=== PATIENT | male | born 1950 | race Caucasian/White ===

== ENCOUNTER → 2018-04-01 | Outpatient (CLI) | payer MEDICARE ==
[~2018-04-01] MED LIST: ACCUPRIL5 MG PO; CELEBREX100 MG PO; GABAPENTIN400 MG PO; GADOBENATE DIMEGLUMINE 1 ML IV ONE; PRAVASTATIN SOD10 MG; SODIUM CHLORIDE 0.9% 50ML 50 ML ONE
[2018-04-01 14:59] LABS: BLOOD UREA NITROGEN 8 mg/dL (7-26); BUN/CREATININE RATIO 10 (6-25); CREATININE, SERUM 0.83 mg/dL (0.72-1.25); EST GLOMERULAR FILTRATION RATE > 60 ML/MIN (60-)
--- NOTE | 2018-04-01 15:49 | Diagnostic Imaging Report ---
PROCEDURE: Frontal and lateral views of the chest. COMPARISON: [facility] [place], DX, CHEST SINGLE (PORTABLE), 02/27/2017, 15:14. INDICATIONS: SHORTNESS OF BREATH FINDINGS: Lines/tubes: None. Lungs: The lungs are well inflated and clear. There is no evidence of pneumonia or pulmonary edema. Pleura: There is no pleural effusion or pneumothorax. Heart and mediastinum: The heart and the mediastinum are normal. Mild calcification of the aortic arch. Bones: No acute bony abnormality. Remote healed fracture of the posterolateral right ninth rib. Multilevel spondylosis of the mid to lower thoracic spine. Left humeral hemiarthroplasty. IMPRESSION: 1. No acute cardiopulmonary disease. Tiffany Ballesteros M.D. Dictated by: Tiffany Ballesteros M.D. on 04/01/2018 at 15:53 Electronically approved by: Tiffany Ballesteros M.D. on 04/01/2018 at 15:53
--- NOTE | 2018-04-01 20:28 | Diagnostic Imaging Report ---
Examination: MRI of the Brain without and with Contrast History: FOLLOW UP PITUITARY MASS Comparison studies: February 25, 2017 Technique: Multiplanar multisequence MR images of the brain with and without contrast including sella field of view sequences. Findings: Sella/Pituitary gland: Reidentified 1.4 x 1.7 x 1.7 cm expansile smooth ovoid enhancing sellar-suprasellar mass most consistent with a pituitary macroadenoma; unchanged from February 25, 2017. Pituitary stalk: Displaced the right of midline Optic chiasm: Well visualized and unremarkable. Cavernous sinuses: Normal in size and symmetric. Internal carotid arteries: Normal flow void appearance. Sphenoid sinuses: No T2 hyperintense mucosal inflammatory changes. There are no abnormalities in the visualized sections through the brain. IMPRESSION: 1. No new abnormality. No change from February 25, 2017 brain MRI. 2. Unchanged pituitary macroadenoma. The images and preliminary report of by Dr. Bazan were reviewed and signed by Dr. Farzana Moon, neuroradiology faculty, on 04/01/2018 at 2024 hours. Signed by: Dr. Farzana Moon M.D. on 04/01/2018 8:24 PM
== END | disposition home or self-care (01) ==
LOC: MRI 14:09
PROVIDERS: ATTEND Internal Medicine
DX: D35.2 Benign neoplasm of pituitary gland (principal)
CPT/HCPCS: 36415; 70553; 71046; 82565; 84520

== ENCOUNTER → 2019-04-09 | Outpatient (CLI) | payer MEDICARE ==
[~2019-04-09] MED LIST changes: -SODIUM CHLORIDE 0.9% 50ML 50 ML ONE
[2019-04-09 16:38] LABS: BLOOD UREA NITROGEN 11 mg/dL (7-26); BUN/CREATININE RATIO 12 (6-25); CREATININE, SERUM 0.93 mg/dL (0.72-1.25); EST GLOMERULAR FILTRATION RATE > 60 ML/MIN (60-)
--- NOTE | 2019-04-09 19:30 | Diagnostic Imaging Report ---
History: Follow-up pituitary mass Comparison studies: Pituitary MRI 04/01/2018 Technique: Pre-and post coronal and sagittal T1. Coronal T2. Axial DWI through the brain. Dynamic postcontrast coronal through the sella Intravenous contrast: 20 cc of MultiHance Findings: Sella and pituitary gland: The sella is expanded and largely occupied by a 1.7 x 1.3 x 1.7 cm (SI x AP x TV) ovoid mass in the left sella which extends to the inferior margin of the suprasellar cistern and is unchanged. Lesion is T2 hyperintense to presumably residual enhancing pituitary tissue in the right sella. Pituitary stalk: Normal in size, deviated to the right of midline, unchanged. Optic chiasm: Well visualized and unremarkable. Cavernous sinuses: Intrasellar mass abuts the medial lara of the cavernous sinus without definite evidence of cavernous sinus invasion. Internal carotid arteries: Normal flow void appearance. Paranasal sinuses: Mild nonspecific inflammatory mucosal thickening in the bilateral ethmoid air cells and left sphenoid sinus. There are no abnormalities in the visualized sections through the brain. IMPRESSION: Pituitary macroadenoma is unchanged from the prior pituitary MRI of 04/01/2018. Signed by: Dr. Cb Perez M.D. on 04/09/2019 7:27 PM
== END ==
LOC: MRI 15:51
PROVIDERS: ATTEND Internal Medicine
DX: Z09 Encounter for follow-up examination after completed treatment for conditions other than malignant neoplasm (principal); E23.7 Disorder of pituitary gland, unspecified
CPT/HCPCS: 36415; 70553; 82565; 84520; A9577

== ENCOUNTER → 2020-05-18 | Outpatient (CLI) | payer MEDICARE ==
[~2020-05-18] MED LIST changes: +SODIUM CHLORIDE 0.9% 50ML 50 ML ONE
[2020-05-18 13:27] LABS: BLOOD UREA NITROGEN 19 mg/dL (7-26); BUN/CREATININE RATIO 17 (6-25); EST GLOMERULAR FILTRATION RATE > 60 ML/MIN (60-)
--- NOTE | 2020-05-18 16:05 | Diagnostic Imaging Report ---
Examination: MRI of the Brain without and with Contrast History: Follow up pituitary mass Comparison studies: April 09, 2019, April 01, 2018 Technique: Multiplanar multisequence MR images of the brain with and without contrast including sella field of view sequences. Contrast: 20mL MultiHance Findings: Sella/Pituitary gland: Reidentified 1.4 x 1.7 x 1.7 cm expansile smooth ovoid enhancing sellar-suprasellar mass most consistent with a pituitary macroadenoma; unchanged from February 25, 2017. Pituitary stalk: Displaced the right of midline Optic chiasm: Well visualized and unremarkable. Cavernous sinuses: Normal in size and symmetric. Internal carotid arteries: Normal flow void appearance. Sphenoid sinuses: No T2 hyperintense mucosal inflammatory changes. There are no abnormalities in the visualized sections through the brain. IMPRESSION: 1. No new abnormality when compared to prior brain MRIs with most recent April 09, 2019. 2. Unchanged pituitary macroadenoma. Signed by: Dr. Farzana Moon M.D. on 05/18/2020 4:01 PM
== END ==
LOC: MRI 12:28
PROVIDERS: ATTEND Internal Medicine
DX: D35.2 Benign neoplasm of pituitary gland (principal); Z09 Encounter for follow-up examination after completed treatment for conditions other than malignant neoplasm
CPT/HCPCS: 36415; 70553; 82565; 84520; A9577

== ENCOUNTER → 2021-07-19 | Outpatient (CLI) | payer MEDICARE ==
[2021-07-19 13:27] LABS: CREATININE, SERUM 0.8 mg/dL (0.72-1.25)
== END ==
LOC: MRI 12:31
PROVIDERS: ATTEND Internal Medicine
DX: Z09 Encounter for follow-up examination after completed treatment for conditions other than malignant neoplasm (principal); E23.7 Disorder of pituitary gland, unspecified
CPT/HCPCS: 36415; 70553; 82565; 84520; A9577

== ENCOUNTER → 2023-04-19 | Outpatient (CLI) | payer MEDICARE ==
[~2023-04-19] MED LIST changes: -SODIUM CHLORIDE 0.9% 50ML 50 ML ONE
[2023-04-19 13:33] LABS: CREATININE, SERUM 1.04 mg/dL (0.72-1.25)
== END ==
LOC: MRI 12:30
PROVIDERS: ATTEND Internal Medicine
DX: D35.2 Benign neoplasm of pituitary gland (principal)
CPT/HCPCS: 36415; 70553; 82565; 84520; 93925; A9577